=== PATIENT | female | born 1970 | race Caucasian/White ===

== ENCOUNTER → 2016-12-22 | Outpatient (CLI) | payer SELFPAY ==
--- NOTE | 2016-12-23 15:37 | CT ---
EXAM DESCRIPTION: Chest w/Contrast CLINICAL HISTORY: OTHER DISORDERS OF LUNG COMPARISON: October 16, 2015 TECHNIQUE: Chest CT was performed with IV contrast. This exam was performed according to our departmental dose-optimization program, which includes automated exposure control, adjustment of the mA and/or kV according to patient size and/or use of iterative reconstruction technique. FINDINGS: There is no thoracic aortic aneurysm or dissection. The main pulmonary artery is not dilated. No mediastinal or hilar adenopathy. No pleural or pericardial effusion. No airspace consolidation or lung mass. The central airways are clear. Again seen is a 4 mm nodule in the right lung adjacent to the major fissure, unchanged from September,. No new lung nodule. Visualized portions of the upper abdomen are unremarkable except for a tiny nonspecific low density lesion superiorly in the spleen, stable. No concerning bone lesion. IMPRESSION: 4 mm noncalcified right lung nodule, stable from September,. Per updated Fleischner Society recommendations, no further follow-up is recommended. Otherwise unremarkable exam. Electronically signed by: Wilder Robertson MD 12/23/2016 3:36 PM CDT
== END | disposition home or self-care (01) ==
LOC: CT 12:43
PROVIDERS: ATTEND Nurse Practitioner Family
DX: J98.4 Other disorders of lung (principal)

== ENCOUNTER → 2016-12-22 | Outpatient (CLI) | payer BC | LOC: LAB.O 16:57 | PROVIDERS: ATTEND Nurse Practitioner Family | DX: J98.4 Other disorders of lung (principal) ==

== ENCOUNTER → 2017-01-27 | Outpatient (CLI) | payer BC | LOC: SL 21:32 | PROVIDERS: ATTEND Nurse Practitioner Family | DX: G47.33 Obstructive sleep apnea (adult) (pediatric) (principal) ==

== ENCOUNTER → 2017-02-13 | Outpatient (CLI) | payer BC | LOC: RESP 16:10 | PROVIDERS: ATTEND Family Medicine | DX: R00.2 Palpitations (principal) ==

== ENCOUNTER → 2017-02-24 | Outpatient (CLI) | payer BC | END | disposition home or self-care (01) | LOC: SL 21:11 | PROVIDERS: ATTEND Nurse Practitioner Family | DX: G47.33 Obstructive sleep apnea (adult) (pediatric) (principal); I10 Essential (primary) hypertension; R06.83 Snoring; G47.30 Sleep apnea, unspecified ==

== ENCOUNTER → 2018-03-15 | Outpatient (CLI) | payer BC ==
--- NOTE | 2018-03-15 14:52 | MRI ---
EXAM DESCRIPTION: Shoulder,Left: Magnetic Resonance Imaging. CLINICAL HISTORY: 64419 M75.122 COMPARISON: Radiographs of the left shoulder 03/09/2017. TECHNIQUE: Multiplanar, high-field MRI, multiple sequences, without contrast, left shoulder. FINDINGS: Almost full-thickness tear of the supraspinatus tendon insertion on the anterior greater tuberosity from the anterior to the posterior margin including a rudimentary rib pair. Heterogeneous signal in the remainder of the tendon which appears partially atrophic. Minimal fluid in the musculotendinous junction. Fluid in the musculotendinous junction of the infraspinatus tendon but the remainder of the tendon demonstrates normal signal. Remaining tendons of the rotator cuff are intact. Fluid in the longitudinal orientation in the inferior distal muscle belly of the supraspinatus. Minimal atrophy of the distal muscle bellies of the infraspinatus and supraspinatus. Minimal edema in the subacromion subdeltoid bursa. Normal marrow signal in the humeral head. No fluid in the subcoracoid bursa. Decreased normal marrow signal in the scapula. Minimal hypertrophy of the AC joint. Subchondral erosions on the distal clavicle and subchondral cyst on the acromion. Downsloping of the lateral acromion. Type I curvature. Minimal narrowing of the supraspinatus tendon outlet and mild flattening of the coracoacromial arch. Coracoid ligaments are intact. No glenohumeral joint effusion. No labral abnormalities. No glenohumeral osteochondral lesions. Bicipital labral anchor is intact with long head biceps tendon in the bicipital groove. Small fluid collection abutting the posterior band of the inferior glenohumeral ligament. IMPRESSION: 1. Almost full-thickness tear of the insertion of the left supraspinatus tendon on the anterior greater tuberosity with an anterior rim rent tear. Grade 2 strain of the musculotendinous junction. Longitudinal tear in the inferior muscle belly. Minimal edema in the subacromion subdeltoid bursa. 2. Grade 1 strain of the musculotendinous junction of the left infraspinatus with minimal atrophy of the distal muscle fibers. Tendon and tendon insertion are intact. 3. Mild to moderate arthrosis of the left AC joint. Downsloping of the lateral acromion with narrowing of the supraspinatus tendon outlet and flattening of the lateral coracoacromial arch. 4. No osteochondral lesions are not glenoid labral lesions. Questionable sprain of the posterior band of the inferior glenohumeral ligament with fluid collection. Electronically signed by: Maicol Sal MD 03/15/2018 2:51 PM [facility]
== END ==
LOC: MRI 09:08
PROVIDERS: ATTEND Family Medicine
DX: M75.122 Complete rotator cuff tear or rupture of left shoulder, not specified as traumatic (principal); M19.012 Primary osteoarthritis, left shoulder

== ENCOUNTER → 2018-04-17 | Outpatient (CLI) | payer BC | LOC: RESP 10:26 | PROVIDERS: ATTEND Orthopaedic Surgery | DX: Z01.818 Encounter for other preprocedural examination (principal) ==

== ENCOUNTER 2018-05-16 05:43 | Day surgery (SDC) | payer BC ==
--- NOTE | 2018-05-04 10:10 | HP ---
CHIEF COMPLAINT: Left shoulder pain. HISTORY OF PRESENT ILLNESS: Geeta is a 47-year-old female with a history of pain in the left shoulder that has been present and ongoing for a very long time. She had no direct trauma, but does do quite a bit of lifting in her daily life. Because of that, she has failed conservative measures and MRI revealed a tear in the rotator cuff. Because of that, we talked about the risks, benefits and alternatives to that and she has informed consent for rotator cuff repair. PAST SURGICAL HISTORY: 1. Hysterectomy. 2. Right shoulder subacromial decompression. MEDICATIONS: 1. Hydrochlorothiazide. 2. Propranolol. 3. Tylenol. 4. Aspirin. 5. Vitamins. 6. Magnesium. 7. Lysine. 8. Vitamin D. 9. Multiple vitamins. ALLERGIES: SULFA, HYDROCODONE. CODE STATUS: Full code. IMMUNIZATIONS: Up to date. FAMILY HISTORY: None pertinent to today's complaint. SOCIAL HISTORY: The patient does not drink, smoke or use any illicit drugs. REVIEW OF SYSTEMS: Negative except as indicated in the History of Present Illness. PHYSICAL EXAMINATION: VITAL SIGNS: Blood pressure 141/87. Pulse 86. Height 5'4". Weight 234 pounds. MENTAL STATUS: The patient is awake, alert, and is able to give a good history and participate in the physical. The patient is oriented to person, place and time. SKIN: Normal tone and turgor. MUSCULOSKELETAL: She is tender throughout her range of motion, but has full abduction and full forward flexion. She has a warm and well perfused extremity. There is no crepitus with range of motion. She is very tender to palpation in the subacromial space. She has a negative belly press maneuver. She has pain with forward flexion and abduction. She has some mild pain with cross-chest adduction. Strength is 5/5. IMAGING: MRI reveals tear of the rotator cuff as well as evidence of narrowing of the supraspinatus outlet. ASSESSMENT: 1. Rotator cuff tear. PLAN: The plan at this point is for rotator cuff repair. We have discussed the risks, benefits, and alternatives to operative intervention and the patient has given informed consent. #[id number] [facility]
[2018-05-16] MEDS ORDERED: SODIUM CHL 0.9% 100ML MINI-BAG 100 ML IVPB ONE (05:49)
[2018-05-16] MEDS ORDERED: LACTATED RINGERS 1,000 ML ONE ×2 (05:49→07:56)
[2018-05-16] MEDS ORDERED: ceFAZolin SODIUM 1 GM VIAL ONE (05:49)
[2018-05-16] MEDS ORDERED: SUGAMMADEX SODIUM 200 MG/2 ML VIAL IV ONE (06:03)
[2018-05-16] MEDS ORDERED: MIDAZOLAM INJ 5 MG/5 ML VIAL ONE (06:04)
[2018-05-16] MEDS ORDERED: fentaNYL CITRATE INJ 50 MCG/ML AMP ONE (06:04)
[2018-05-16] MEDS ORDERED: ACETAMINOPHEN IV 1000MG 100 ML ONE (06:04)
[2018-05-16] MEDS ORDERED: MORPHINE SULFATE INJ 10 MG/ML VIAL ONE (06:04)
[2018-05-16] MEDS ORDERED: BUPIVACAINE 0.25% INJ 30 ML VIAL INJ ONE (06:05)
[2018-05-16] MEDS ORDERED: SUCCINYLCHOLINE CHLORIDE 200 MG/10 ML VIAL ONE (06:07)
[2018-05-16] MEDS ORDERED: ROCURONIUM BROMIDE 10 MG/ML VIAL ONE (06:07)
[2018-05-16] MEDS ORDERED: BUPIVACAINE 0.5% 30 ML VIAL INJ ONE (06:37)
[2018-05-16] MEDS ORDERED: BUPIVACAINE LIPOSOME 13.3 MG/ML VIAL INJ ONE (06:37)
[2018-05-16] MEDS: ceFAZolin SODIUM 1 GM VIAL ONE ×2 (08:07→08:35)
[2018-05-16] MEDS: VANCOMYCIN HCL INJ 1,000 MG VIAL IVPB ONE ×2 (08:07→08:35)
[2018-05-16] MEDS ORDERED: LACTATED RINGERS 1,000 ML IVS ONE ×3 (09:43)
[2018-05-16] MEDS ORDERED: DEXAMETHASONE INJ 10 MG/ML VIAL IV ONE (10:00)
[2018-05-16] MEDS ORDERED: PHENYLEPHRINE INJ 1ML 10 MG/ML VIAL IV ONE (10:00)
[2018-05-16] MEDS ORDERED: PROPOFOL 200 MG/20 ML VIAL IV ONE (10:00)
[2018-05-16] MEDS ORDERED: ONDANSETRON INJ 4 MG/2 ML VIAL IV ONE (10:00)
[2018-05-16] MEDS ORDERED: LIDOCAINE 1% 10 ML VIAL INJ ONE (10:00)
[2018-05-16 11:52] VITALS: BP 113/75; TEMP 98.8; O2SAT 94
--- NOTE | 2018-05-17 08:35 | OP ---
DATE OF PROCEDURE: 05/16/18 PREOPERATIVE DIAGNOSIS: 1. Rotator cuff tear. 2. Acromioclavicular arthritis. 3. Subacromial impingement. POSTOPERATIVE DIAGNOSIS: 1. Rotator cuff tear. 2. Acromioclavicular arthritis. 3. Impingement. PROCEDURE: 1. Rotator cuff repair. 2. Subacromial decompression and distal clavicle resection. SURGEON: Helder Guillaume MD. SEARCH MARKETING SPECIALIST: Maicol Edwards CST SA-C. ANESTHESIA: General anesthesia. COMPLICATIONS: None. FINDINGS: 1. Hypertrophic bursitis. 2. Approximately 6 to 7 mm tear in the anterior edge of the supraspinatus. 3. Acromioclavicular arthritis. 4. Type 2 acromion. INDICATION: Ms. Martin has a history of pain in the shoulder that has been refractory to conservative measures. Because ongoing pain and the refractory nature, she has requested operative intervention. After discussing the risks, benefits and alternatives to that, the patient has given informed consent for that. PROCEDURE: The patient was brought to the Operating Room and placed in the supine position. General anesthesia was induced and the patient was transitioned into the beach chair position. The entire arm was sterilely prepped and draped. Following prepping and draping, an incision was made at the lateral border of the acromion. Dissection was carried down and full thickness skin flaps were developed. A split was made between the anterior and middle heads of the deltoid and an acromioplasty was performed. Following the acromioplasty, bursectomy was performed and the rotator cuff was identified. It was fully examined and the aforementioned tear was noted. Following that, a double-loaded suture anchor was used after debridement of the tendon. The tendon was reapproximated in anatomic fashion. The arm was taken through a range of motion and found to be stable with no undue tension of the cuff or tear. Attention was then focused on the acromioclavicular joint. Following identification of the joint, the distal 10 mm was resected. Care was taken to ensure removal of all bony debris. The wound was very thoroughly irrigated and periosteal flaps were reapproximated over the acromioclavicular defect. The skin was closed with a combination of running and interrupted subcuticular stitches followed by Nylon suture. Sterile dressings were placed. The patient was placed in a sling, awoken from anesthesia and taken to Recovery. POSTOPERATIVE PLAN: She will be limited with regards to range of motion. She will followup with us in 2 days. Family members have been given appropriate instructions on limitations in her motion and activity until followup. #[id number] [facility]
== END 2018-05-16 11:30 | disposition home or self-care (01) ==
LOC: AMB 05:43
PROVIDERS: ATTEND Orthopaedic Surgery
DX: M75.102 Unspecified rotator cuff tear or rupture of left shoulder, not specified as traumatic (principal); M13.812 Other specified arthritis, left shoulder; M75.42 Impingement syndrome of left shoulder; I10 Essential (primary) hypertension; E66.01 Morbid (severe) obesity due to excess calories; G47.30 Sleep apnea, unspecified; Z99.89 Dependence on other enabling machines and devices; Z90.710 Acquired absence of both cervix and uterus; Z88.2 Allergy status to sulfonamides; Z88.5 Allergy status to narcotic agent; Z79.82 Long term (current) use of aspirin; Z79.899 Other long term (current) drug therapy
CPT/HCPCS: 01630; 23120; 23420; 80307; J0330; J0690; J1100; J2250; J2405; J3010; J3370; J3490; J7050; J7120